=== PATIENT | female | born 1980 | race African-American/Black ===

== ENCOUNTER 2016-07-23 13:17 | Emergency (ER) | payer OTHER ==
[2016-07-23 13:21] VITALS: BP 110/43; PULSE 102; TEMP 97.6; BMI 60.7
--- NOTE | 2016-07-23 14:14 | PDOC ---
[id number] [id number] CHEST PAIN Time Seen by Provider: 07/23/16 14:06 History Source: Patient Exam Limitations: No Limitations - History of Present Illness Initial Comments: 07/23/16 14:55 With complaints of , palpitations, and some associated dizziness. No history of cardiac disease, no known arrhythmias, no family history of arrhythmias, has denied any recent URI, fevers, cough or other symptomatology. states when she takes a deep breath the pain is mid chest wall and radiates to the left side, is producible with deep inspiration. Patient denies any particular activity is associated with this pain however has initiated multiple different types of exercise programs that included aerobic activity. StAtes was seen a few weeks ago at PCP, EKG was taken which was told to be normal. 07/23/16 14:59 Timing/Duration: unsure Severity: mild, moderate Associated Symptoms: reports: chest pain Past History - Travel Traveled outside of the country in the last 30 days: No Close contact w/someone who was outside of country & ill: No - Past Medical History Allergies/Adverse Reactions: Allergies Allergy/AdvReac Type Severity Reaction Status Date / Time No Known Allergies Allergy Verified 07/23/16 13:19 Home Medications: Ambulatory Orders NK [No Known Home Medication] 12/16/15 - Psycho/Social/Smoking Cessation Hx Suicidal Ideation: No Smoking History: Never smoked Have you smoked in the past 12 months: No Information on smoking cessation initiated: No Hx Alcohol Use: No Drug/Substance Use Hx: No Review of Systems - Review of Systems Able to Perform ROS?: Yes Is the patient limited Greek proficient: Yes Constitutional: Yes: See HPI. No: Symptoms Reported HEENTM: No: Symptoms Reported Respiratory: Yes: See HPI. No: Symptoms reported, Cough, Wheezing ABD/GI: No: Symptoms Reported : No: Symptoms Reported Musculoskeletal: Yes: Symptoms Reported All Other Systems: Reviewed and Negative *Physical Exam - Vital Signs Last Vital Signs Temp Pulse Resp BP Pulse Ox 97.6 F 102 H 20 110/43 99 07/23/16 13:19 07/23/16 13:19 07/23/16 13:19 07/23/16 13:19 07/23/16 13:19 - Physical Exam General Appearance: Yes: Nourished, Appropriately Dressed, Mild Distress HEENT: positive: PARUL, Normal ENT Inspection, TMs Normal, Pharynx Normal Neck: positive: Supple. negative: Tender, Lymphadenopathy (R), Lymphadenopathy (L) Respiratory/Chest: positive: Lungs Clear, Normal Breath Sounds (pain is reproduced to left chest wall). negative: Chest Tender Gastrointestinal/Abdominal: positive: Soft Musculoskeletal: positive: Normal Inspection, Other (pain is reproduced with movement to deep pectoralis muscles primarily on the left side, able to push on chest wall and reproduce same pain.) Integumentary: positive: Normal Color Neurologic: positive: knockdown man II-XII NML intact, Fully Oriented, Alert, Normal Mood/ Affect, Normal Response, Motor Strength 08/13 ED Treatment Course - LABORATORY CBC & Chemistry Diagram: 07/23/16 15:00 07/23/16 15:00 Medical Decision Making - Medical Decision Making 07/23/16 15:17 Atypical chest pain, musculoskeletal. Will check electrolytes basic labs including cardiac enzymes as EKG is completely normal. 07/23/16 16:35 Patient much improved after Toradol injection, infect states movement does not really exacerbate pain in her chest any longer. Laboratory work all within normal limits. Encourage patient to take these results to PCP and have reevaluation with cardiology consult for possible Holter monitoring. *DC/Admit/Observation/Transfer Diagnosis at time of Disposition: Musculoskeletal chest pain - Discharge Dispostion Disposition: HOME Condition at time of disposition: Stable Admit: No - Referrals Referrals: Macie Gutierrez MD [Primary Care Provider] - - Patient Instructions Printed Discharge Instructions: DI for Atypical Chest Pain Additional Instructions: Rest, ice to area on and off for 15 minutes 4-6 times a day Avoid heavy lifting or exercise until pain and swelling is resolved or until further directed Keep area highly elevated to reduce swelling Followup with PCP in one to 2 days if not improving, if significantly improved may wait one week for followup with PCP May use ibuprofen 2-200 mg tablets every 6 hours as needed for pain - Post Discharge Activity Work/School Note: Back to Work
[2016-07-23] MEDS ORDERED: KETOROLAC TROMETHAMINE 60 MG/2 ML VIAL IM ONE (14:55)
[2016-07-23] MEDS ORDERED: KETOROLAC TROMETHAMINE 60 MG/2 ML VIAL ONE (14:57)
[2016-07-23 15:19] LABS: BASOPHIL 0.6 % (0-2.0); EOSINOPHIL 1.4 % (0-4.5); MCH 23.4 pg (25.7-33.7); MCHC 32.3 g/dl (32.0-36.0); MEAN CELL VOLUME 72.7 fl (80-96); MEAN PLT VOLUME 8.9 fl (7.5-11.1); NEUTROPHILS 38.5 % (42.8-82.8); PLATELET COUNT 241 K/MM3 (134-434); RDW 15.7 % (11.6-15.6); WHITE BLOOD COUNT 5.3 K/mm3 (4.0-10.0)
[2016-07-23 15:21] LABS: URINE APPEARANCE SLCLOUDY; URINE BILIRUBIN NEGATIVE (NEGATIVE); URINE BLOOD NEGATIVE (NEGATIVE); URINE COLOR YELLOW; URINE GLUCOSE (UA) NEGATIVE (NEGATIVE); URINE KETONE TRACE (NEGATIVE); URINE LEUK ESTERASE NEGATIVE (NEGATIVE); URINE NITRITE NEGATIVE (NEGATIVE); URINE PROTEIN NEGATIVE (NEGATIVE); URINE UROBILINOGEN NEGATIVE E.U./dl (0.2-1.0)
[2016-07-23 15:48] LABS: ALBUMIN 3.4 g/dl (3.4-5.0); ANION GAP 7 (8-16); BILIRUBIN,TOTAL 0.3 mg/dL (0.2-1.0); CALCIUM 8.5 mg/dL (8.5-10.1); CO2 26 mmol/L (21-32); COCKROFT - GAULT 258.9695; CREATININE 0.8 mg/dL (0.55-1.02); GLUCOSE,RANDOM 85 mg/dL (74-106); SGOT/AST 31 U/L (15-37); TOT PROT 7.5 g/dl (6.4-8.2)
[2016-07-23 15:49] LABS: TROPONIN I < 0.02 ng/ml (0.00-0.05)
[2016-07-23 15:57] LABS: ALK PHOS 87 U/L (45-117); FREE T4 1.44 ng/dl (0.76-1.46); SGPT/ALT 24 U/L (12-78); THYROID STIMULATING HORMONE 0.75 uIU/ml (0.358-3.74)
--- NOTE | 2016-07-27 12:59 | EKG ---
Test Reason : Blood Pressure : / mmHG Vent. Rate : 084 BPM Atrial Rate : 084 BPM P-R Int : 160 ms QRS Dur : 074 ms QT Int : 376 ms P-R-T Axes : 051 035 030 degrees QTc Int : 444 ms NORMAL SINUS RHYTHM NORMAL ECG NO PREVIOUS ECGS AVAILABLE BASELINE ARTIFACT Confirmed by KALIN MELENDEZ, MEAGHAN ([id number]) on 07/27/2016 12:58:52 PM Referred By: Confirmed By:MEAGHAN GAGNON MD
== END 2016-07-23 16:18 | disposition home or self-care (01) ==
LOC: JERFT 13:17 → JER 13:17 → JERFT 16:18
PROC: 3E0233Z Introduction of Anti-inflammatory into Muscle, Percutaneous Approach (ICD-10-PCS; principal; 2016-07-23)
DX: R07.89 Other chest pain (principal)
CPT/HCPCS: 36415; 80053; 81003; 82550; 82553; 84439; 84443; 84484; 84703; 85025; 93005; 93010; 99281-25

== ENCOUNTER 2016-12-24 13:33 | Emergency (ER) | payer OTHER ==
[2016-12-24 13:50] VITALS: TEMP 98.4; BMI 62.4
--- NOTE | 2016-12-24 14:07 | PDOC ---
History of Present Illness - General Chief Complaint: Syncope/Near Syncope Stated Complaint: DIZZINESS Time Seen by Provider: 12/24/16 14:06 History Source: Patient Exam Limitations: No Limitations - History of Present Illness Initial Comments: 12/24/16 14:06 Patient is a 36 year old morbidly obese female with history significant only for GERD presenting with a syncopal episode this morning. Patient claims she has been having recurrent episodes of left face and tongue tingling, right chest and arm pain, dizziness and headache for approximately 2 months. She claims that these symptoms normally resolve after a few minutes. She was seen by her PCP 3 weeks ago and put on supplements but the symptoms have not resolved and today, while experiencing the symptoms, the patient claims she blacked out while attempting to get out of bed. She states she fell back into the bed without hitting her head. Denies chest pain, palpitations, urinary incontinence, tongue biting. The incident was unwitnessed and patient believes she was only unconscious for a few seconds. Afterwards the patient felt groggy and had residual face and tongue tingling, right arm tingling, right chest "pressure", headache and dizziness that she described as the room spinning that she is still endorsing in the ED. Patient has a neuro referral but has been unable to get a fast followup. PCP: Fernanda Monroy ([phone]) Past History - Past Medical History Allergies/Adverse Reactions: Allergies Allergy/AdvReac Type Severity Reaction Status Date / Time No Known Allergies Allergy Verified 12/24/16 13:46 Home Medications: Ambulatory Orders Omeprazole 20 mg PO DAILY 12/24/16 GI Disorders: Yes (GERD) - Suicide/Smoking/Psychosocial Hx Suicidal Ideation: No Smoking History: Never smoked Have you smoked in the past 12 months: No Hx Alcohol Use: No Drug/Substance Use Hx: No Review of Systems - Review of Systems Able to Perform ROS?: Yes Comments:: Endorses URI two days ago, no current fever or chills or sore throat Endorses ear popping and increased blurry vision Denies shortness of breath Endorses Right chest pressure. Denies palpitations, lightheadedness, diaphoresis Endorses nausea; Denies abdominal pain, vomiting, diarrhea, constipation Denies dysrura or burning on urination Endorses right arm tingling; Denies arm pain Denies burises and rashes Endorses BURTON, Left facial tingling, tingling of her tongue, Feeling groggy, dizziness (room spinning) Is the patient limited Guyanese proficient: No *Physical Exam - Vital Signs Last Vital Signs Temp Pulse Resp BP Pulse Ox 98.4 F 83 19 140/89 100 12/24/16 13:46 12/24/16 13:46 12/24/16 13:46 12/24/16 13:46 12/24/16 13:46 - Physical Exam Comments: AAOx3, morbidly obese, nourished and generally well appearing, NAD Head is NCAT PERRLA, EOMI, sclera anicteric, conjunctiva clear Hearing grossly normal, nares patent, no nasal discharge, no congestion, MMM Neck supple with normal ROM, no LAD, no JVD, no masses Speaking in full sentences, symmetrical chest expansion, lungs CTAB, no respiratory distress Cardiac RRR, normal S1-S2, no MRG Abdomen is soft, protuberant, NTND, no guarding, no rebound Moving all extremities, normal ROM, strength 5/5, normal sensation intact, right posterior calf exquisitely ttp, 1+ PT pulses CN II-XII grossly intact, normal speech, normal gait, no focal sensorimotor deficits, Romberg/pronator drift normal, finger to nose normal Skin is warm and dry with normal turgor and no rashes or lesions noted ED Treatment Course - LABORATORY CBC & Chemistry Diagram: 12/24/16 15:25 12/24/16 15:25 Medical Decision Making - Medical Decision Making 12/24/16 14:06 Morbidly obese 36 yo f with 2 months of progressive neurological complaints involving face and tongue numbness, BURTON, arm pain and 1x syncope today with residual sx. no focal neurological symptoms, pain to the left calf Ddx includes but is not limited to syncope (PE, cardiac arrhythmia, ACS, orthostatic, vasovagal), seizure, complex migraine, DVT, vascular pathology Plan EKG CBC, CMP, Mg d-dimer Evaluate Orthostatic BP UA, UDS TSH Cardiac enzymes Duplex 12/24/16 15:05 EKG: NSR, normal intervals, uwave inversions III 12/24/16 17:13 CBC WBC 7.5 K/mm3 (4.0-10.0) D 12/24/16 15:25 RBC 4.48 M/mm3 (3.60-5.2) 12/24/16 15:25 Hgb 10.4 GM/dL (10.7-15.3) L 12/24/16 15:25 Hct 32.6 % (32.4-45.2) 12/24/16 15:25 MCV 72.9 fl (80-96) L 12/24/16 15:25 MCH 23.2 pg (25.7-33.7) L 12/24/16 15:25 MCHC 31.9 g/dl (32.0-36.0) L 12/24/16 15:25 RDW 15.6 % (11.6-15.6) 12/24/16 15:25 Plt Count 264 K/MM3 (134-434) 12/24/16 15:25 MPV 9.1 fl (7.5-11.1) 12/24/16 15:25 Neutrophils % 61.0 % (42.8-82.8) D 12/24/16 15:25 Lymphocytes % 31.3 % (8-40) D 12/24/16 15:25 Monocytes % 6.0 % (3.8-10.2) 12/24/16 15:25 Eosinophils % 1.2 % (0-4.5) 12/24/16 15:25 Basophils % 0.5 % (0-2.0) 12/24/16 15:25 mild anemia, otherwise grossly within normal limits CMP Sodium 137 mmol/L (136-145) 12/24/16 15:25 Potassium 4.3 mmol/L (3.5-5.1) 12/24/16 15:25 Chloride 106 mmol/L (98-107) 12/24/16 15:25 Carbon Dioxide 26 mmol/L (21-32) 12/24/16 15:25 Anion Gap 5 (8-16) L 12/24/16 15:25 BUN 9 mg/dL (7-18) D 12/24/16 15:25 Creatinine 0.7 mg/dL (0.55-1.02) 12/24/16 15:25 Creat Clearance w eGFR > 60 (>60) 12/24/16 15:25 POC Glucometer 92.41764 UNITS (()) 12/24/16 14:28 Random Glucose 81 mg/dL (74-106) 12/24/16 15:25 Calcium 8.4 mg/dL (8.5-10.1) L 12/24/16 15: Magnesium 1.9 mg/dL (1.8-2.4) 12/24/16 15:25 Total Bilirubin 0.4 mg/dL (0.2-1.0) D 12/24/16 15:25 AST 19 U/L (15-37) D 12/24/16:25 ALT 16 U/L (12-78) D 12/24/16 15:25 Alkaline Phosphatase 89 U/L (45-117) 12/24/16: Creatine Kinase 166 IU/L (26-192) 12/24/16: Troponin I < 0.02 ng/ml (0.00-0.05) 12/24/16: Total Protein 7.2 g/dl (6.4-8.2) 12/24/16: Albumin 3.0 g/dl (3.4-5.0) L 12/24/16 15: TSH 0.91 uIU/ml (0.358-3.74) D 12/24/16 15: Grossly within normal limits Reassuring Corrected calcium wnl Mg wnl Orthostatic BP evaluation (SBP 153, 139, 151) not supportive of orthostatic hypotension Urine Test Results Urine Color Yellow 12/24/16 15: Urine Appearance Slcloudy 12/24/16 15: Urine pH 5.0 (5.0-8.0) 12/24/16 15:02 Urine Protein Negative (NEGATIVE) 12/24/16 15:02 Urine Glucose (UA) Negative (NEGATIVE) 12/24/16 15:02 Urine Ketones Negative (NEGATIVE) 12/24/16 15:02 Urine Blood 3+ (NEGATIVE) H 12/24/16 15:02 Urine Nitrite Negative (NEGATIVE) 12/24/16 15: Urine Bilirubin Negative (NEGATIVE) 12/24/16 15:02 Urine RBC 1160 /hpf (0-3) 12/24/16 15:02 Urine WBC 1 /hpf (3-5) 12/24/16 15:02 Urine Mucus Rare 12/24/16 15:02 Isolated elevated RBC in a menstruating patient non concerning TSH wnl D-dimer(+) 304, duplex ordered 12/24/16 18:24 Patient is stating that she cannot stay any longer because 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 She adamantly refuses to stay for the completion of the DVT workup and wants to leave against medical advice. I explained to patient that leaving AMA is dangerous and can lead to worsening of her condition, permanent disability, and even . I used lay terminology to explain in detail how a DVT can cause clots in the lungs and that this would be life threatening. I answered all of her questions. It is clear to me that she understands the risks and benefits of continuing her care and leaving AMA. She agrees to follow up as soon as she can with her doctor or at this or another emergency department. She has the capacity to make her own decisions and understands she needs to return to the hospital immediately if her symptoms persist or worsen. *DC/Admit/Observation/Transfer Diagnosis at time of Disposition: Syncope Qualifiers: Syncope type: unspecified Qualified Code(s): R55 - Syncope and collapse Calf pain Qualifiers: Laterality: left Qualified Code(s): M79.662 - Pain in left lower leg - Discharge Dispostion Disposition: AGAINST MEDICAL ADVICE Condition at time of disposition: Guarded Admit: No - Referrals Referrals: Fernanda Lopez MD [Primary Care Provider] - - Patient Instructions Printed Discharge Instructions: DI for Deep Vein Thrombosis, DI for Syncope in Adults (Fainting) Additional Instructions: You were seen in the emergency department today for syncope. We are concerned because you also have a pain in your leg and one of the tests we ran, called a d -dimer was positive. This is suggestive of a blood clot in your leg. A piece of this clot may have broken off and gone to your lung causing you to black out. We are concerned that you are leaving the hospital prior to the completion of our evaluation. As we discussed, leaving the hospital against medical advise has the risk of worsening of your condition and complications up to and including . It is important that you follow up with your primary doctor or return to an emergency department to complete the evaluation. Please return to the emergency department immediately if you become short of breath, black out, or have any new or concerning symptoms. Call 911 immediately if you are unable to get a ride to the hospital.
[2016-12-24] MEDS ORDERED: METOCLOPRAMIDE HCL INJECTION 10 MG/2 ML VIAL IVPB ONE (14:55)
[2016-12-24] MEDS ORDERED: SODIUM CHLORIDE 1,000 ML IV STA (14:55)
[2016-12-24] MEDS ORDERED: METOCLOPRAMIDE HCL INJECTION 10 MG/2 ML VIAL ONE (15:27)
[2016-12-24 15:51] LABS: BASOPHIL 0.5 % (0-2.0); EOSINOPHIL 1.2 % (0-4.5); MCH 23.2 pg (25.7-33.7); MCHC 31.9 g/dl (32.0-36.0); MEAN CELL VOLUME 72.9 fl (80-96); MEAN PLT VOLUME 9.1 fl (7.5-11.1); PLATELET COUNT 264 K/MM3 (134-434); RDW 15.6 % (11.6-15.6); WHITE BLOOD COUNT 7.5 K/mm3 (4.0-10.0)
[2016-12-24 15:56] LABS: ANION GAP 5 (8-16); BILIRUBIN,TOTAL 0.4 mg/dL (0.2-1.0); CALCIUM 8.4 mg/dL (8.5-10.1); CO2 26 mmol/L (21-32); CREATININE 0.7 mg/dL (0.55-1.02); GLUCOSE,RANDOM 81 mg/dL (74-106); SGPT/ALT 16 U/L (12-78); TOT PROT 7.2 g/dl (6.4-8.2)
--- NOTE | 2016-12-24 15:58 | PDOC ---
Attending Attestation - Resident Resident Name: Jenna,Derek - ED Attending Attestation I have performed the following: I have examined & evaluated the patient, The case was reviewed & discussed with the resident, I agree w/resident's findings & plan, Exceptions are as noted - HPI HPI: 12/24/16 15:53 36yo female with 3m hx of intermittent episodes of burton, facial numbness, r arm numbness, metallic taste -pt states tingling in face and arm start then she develops a metallic taste and then a BURTON directly behind her L eye. Pt states syncope today at home after developing the headache. No neck pain. No meningeal signs. No cp/palpitations. No abd pain. +nausea. L calf ttp. - Physicial Exam PE: 12/24/16 15:56 Gen: aaox3, nad Head: nc/at HEENT: perrl, eomi, no nystagmus, mmm neck: supple, no meningeal signs, no thyromegaly heart: +s1s2 reg lungs: cta b/l abd: soft, nt/nd +bs ext: l calf ttp, mild swelling to l calf, pedal pulses intact, 5/5 muscle strength b/l UE and LE neuro: cn ii-xii grossly intact, sensation intact, muscle strength 5/5, no focal deficits skin: no rashes - Medical Decision Making 12/24/16 15:58 36yo female with burton, tingling, and syncope -labs -ucg -headct -orthostatics -dimer -doppler -ua -discuss with PMD. -pain control for burton, dizziness, and nausea -reassess 12/24/16 16:48 pt signed out to the oncoming ED physician Heart Score/ECG Review - ECG Intrepretation Comment:: 12/24/16 15:59 sinus at 76, nl axis, t wave inversions III and v2 that are nonspecific, mild t wave flattening
[2016-12-24 16:01] LABS: URINE APPEARANCE SLCLOUDY; URINE BILIRUBIN NEGATIVE (NEGATIVE); URINE BLOOD 3+ (NEGATIVE); URINE COLOR YELLOW; URINE GLUCOSE (UA) NEGATIVE (NEGATIVE); URINE KETONE NEGATIVE (NEGATIVE); URINE LEUK ESTERASE TRACE (NEGATIVE); URINE NITRITE NEGATIVE (NEGATIVE); URINE PROTEIN NEGATIVE (NEGATIVE); URINE UROBILINOGEN NEGATIVE mg/dL (0.2-1.0)
[2016-12-24 16:05] LABS: ALK PHOS 89 U/L (45-117); THYROID STIMULATING HORMONE 0.91 uIU/ml (0.358-3.74); TROPONIN I < 0.02 ng/ml (0.00-0.05)
[2016-12-24 16:10] LABS: MAGNESIUM 1.9 mg/dL (1.8-2.4); SGOT/AST 19 U/L (15-37)
[2016-12-24 16:11] LABS: URINE MUCUS RARE; URINE RBC 1160 /hpf (0-3); URINE WBC 1 /hpf (3-5)
[2016-12-24 16:59] LABS: CPK 166 IU/L (26-192)
[2016-12-24 18:53] VITALS: BP 137/84; PULSE 81
--- NOTE | 2016-12-27 16:57 | EKG ---
Test Reason : Blood Pressure : / mmHG Vent. Rate : 076 BPM Atrial Rate : 076 BPM P-R Int : 164 ms QRS Dur : 080 ms QT Int : 382 ms P-R-T Axes : 036 018 013 degrees QTc Int : 429 ms NORMAL SINUS RHYTHM NORMAL ECG WHEN COMPARED WITH ECG OF 23-JUL-2016 13:27, NO SIGNIFICANT CHANGE WAS FOUND Confirmed by ANNE-MARIE MABRY MD ([id number]) on 12/27/2016 4:57:35 PM Referred By: Confirmed By:ANNE-MARIE MABRY MD
== END 2016-12-24 18:53 | disposition left against medical advice (07) ==
LOC: JER 13:33
PROC: 3E033GC Introduction of Other Therapeutic Substance into Peripheral Vein, Percutaneous Approach (ICD-10-PCS; principal; 2016-12-24)
DX: R55 Syncope and collapse (principal); M79.662 Pain in left lower leg
CPT/HCPCS: 36415; 70450-TC; 80053; 81003; 81015; 82553; 83735; 84443; 84484; 84703; 85025; 85379; 93005; 93010; 96374; 99283-25

== ENCOUNTER 2021-11-11 21:42 | Emergency (ER) | payer OTHER ==
[2021-11-11 22:00] VITALS: BP 121/75; PULSE 86; RESP 18; TEMP 98; BMI 70.0
== END 2021-11-11 23:12 | disposition left against medical advice (07) ==
LOC: JER 21:42
DX: R07.9 Chest pain, unspecified (principal)
CPT/HCPCS: 93005; 93010; 99281-25